=== PATIENT | female | born 1935 | race Caucasian/White ===

== ENCOUNTER → 2017-01-19 | Outpatient (CLI) | payer MEDICARE, BC ==
--- NOTE | 2017-01-20 14:25 | MM ---
Reason for exam: screening (asymptomatic). Last mammogram was performed 1 year and 1 month ago. History: Patient is postmenopausal. Family history of breast cancer in sister at age 67. Benign excisional biopsy of the right breast, 1965. Took estrogen for 15 years beginning at age 51. Took progesterone for 15 years beginning at age 51. Physical Findings: A clinical breast exam by your physician is recommended on an annual basis and results should be correlated with mammographic findings. MG 3D Screening Mammo W/Cad Bilateral CC and MLO view(s) were taken. Prior study comparison: December 17, 2015, bilateral MG 3d screening mammo w/cad. December 05, 2014, bilateral MG screening mammo w CAD. The breast tissue is heterogeneously dense. This may lower the sensitivity of mammography. Finding: There are typically benign diffuse/scattered calcifications in both breasts. No suspicious abnormality. No significant changes in finding since December 17, 2015 and December 05, 2014. ASSESSMENT: Benign, BI-RAD 2 RECOMMENDATION: Routine screening mammogram of both breasts in 1 year.
== END | disposition home or self-care (01) ==
LOC: RADMAMWWP 09:41
PROVIDERS: ATTEND Obstetrics & Gynecology
DX: Z12.31 Encounter for screening mammogram for malignant neoplasm of breast (principal)
CPT/HCPCS: 77063; G0202

== ENCOUNTER → 2018-03-13 | Outpatient (CLI) | payer MEDICARE, BC ==
--- NOTE | 2018-03-15 13:43 | MM ---
Reason for exam: screening (asymptomatic). Last mammogram was performed 1 year and 2 months ago. History: Patient is postmenopausal. Family history of breast cancer in sister at age 67. Benign excisional biopsy of the right breast, 1965. Took estrogen for 15 years beginning at age 51. Took progesterone for 15 years beginning at age 51. Physical Findings: A clinical breast exam by your physician is recommended on an annual basis and results should be correlated with mammographic findings. MG 3D Screening Mammo W/Cad Bilateral CC and MLO view(s) were taken. Prior study comparison: January 19, 2017, bilateral MG 3d screening mammo w/cad. December 17, 2015, bilateral MG 3d screening mammo w/cad. There are scattered fibroglandular densities. Scattered benign calcifications secretory, vascular and oil cyst. No significant changes when compared with prior studies. ASSESSMENT: Negative, BI-RAD 1 RECOMMENDATION: Routine screening mammogram of both breasts in 1 year.
== END | disposition home or self-care (01) ==
LOC: RADMAMWWP 13:34
PROVIDERS: ATTEND Obstetrics & Gynecology
DX: Z12.31 Encounter for screening mammogram for malignant neoplasm of breast (principal)
CPT/HCPCS: 77063; 77067

== ENCOUNTER → 2018-12-04 | Outpatient (CLI) | payer MEDICARE, BC ==
[2018-12-05 00:31] LABS: African American GFR (CKD) 34.7 (60.0-200.0); Anion Gap 8.7 mmol/L (4.00-12.00); BUN/Creat Ratio 17.5 Ratio (12.00-20.00); Carbon Dioxide 30.3 mmol/L (21.6-31.8); Potassium 4.8 mmol/L (3.5-5.5)
== END | disposition home or self-care (01) ==
LOC: LABWHC1 13:50
PROVIDERS: ATTEND Internal Medicine Interventional Cardiology
DX: I25.10 Atherosclerotic heart disease of native coronary artery without angina pectoris (principal)
CPT/HCPCS: 36415; 80048

== ENCOUNTER → 2019-01-30 | Outpatient (CLI) | payer MEDICARE, BC ==
--- NOTE | 2019-01-30 16:20 | US ---
EXAMINATION TYPE: US kidneys/renal and bladder DATE OF EXAM: 01/30/2019 COMPARISON: NONE CLINICAL HISTORY: N18.9 CKD. Chronic kidney disease per order. HTN. EXAM MEASUREMENTS: Right Kidney: 9.3 x 5.6 x 4.7 cm Left Kidney: 9.8 x 4.3 x 5.3 cm Limited due to gas. Right Kidney: Prominent renal pelvis vs. minimal hydronephrosis. Hypoechoic area seen superiorly ashley urin.3 x 1.7 x 0.9 cm. Possible Prominent pyramid or renal calyx. Cyst would be considered. Left Kidney: No hydronephrosis or masses seen Bladder: appears wnl, not fully distended. Bilateral Jets seen: Yes IMPRESSION: 1. Superior pole cyst versus prominent renal calyx at the superior pole
== END | disposition home or self-care (01) ==
LOC: RADUSWWP 15:23
PROVIDERS: ATTEND Internal Medicine Geriatric Medicine
DX: N18.9 Chronic kidney disease, unspecified (principal)
CPT/HCPCS: 76770

== ENCOUNTER → 2019-03-28 | Outpatient (CLI) | payer MEDICARE, BC ==
--- NOTE | 2019-03-28 14:13 | MM ---
Reason for exam: screening (asymptomatic). Last mammogram was performed 1 year ago. History: Patient is postmenopausal. Family history of breast cancer in sister at age 67. Benign excisional biopsy of the right breast, 1965. Took estrogen for 15 years beginning at age 51. Took progesterone for 15 years beginning at age 51. Physical Findings: A clinical breast exam by your physician is recommended on an annual basis and results should be correlated with mammographic findings. MG 3D Screening Mammo W/Cad Bilateral CC and MLO view(s) were taken. Prior study comparison: March 13, 2018, bilateral MG 3d screening mammo w/cad. January 19, 2017, bilateral MG 3d screening mammo w/cad. The breast tissue is heterogeneously dense. This may lower the sensitivity of mammography. Benign appearing bilateral calcifications. No suspicious abnormality. No significant changes when compared with prior studies. ASSESSMENT: Benign, BI-RAD 2 RECOMMENDATION: Routine screening mammogram of both breasts in 1 year.
== END | disposition home or self-care (01) ==
LOC: RADMAMWWP 07:10
PROVIDERS: ATTEND Obstetrics & Gynecology
DX: Z12.31 Encounter for screening mammogram for malignant neoplasm of breast (principal)
CPT/HCPCS: 77063; 77067

== ENCOUNTER → 2019-04-26 | Outpatient (CLI) | payer MEDICARE, BC ==
[2019-04-26 16:20] LABS: HCT 42.7 % (34.0-46.0); HGB 14.1 gm/dL (11.4-16.0); MCH 33.2 pg (25.0-35.0); MCHC 33.1 g/dL (31.0-37.0); MCV 100.6 fL (80.0-100.0); Mean Platelet Volume 6.8; Platelet Count 205 k/uL (150-450); RBC 4.25 m/uL (3.80-5.40); RDW 12.4 % (11.5-15.5); WBC 6.7 k/uL (3.8-10.6)
[2019-04-26 16:23] LABS: Potassium 4.8 mmol/L (3.5-5.1)
== END | disposition home or self-care (01) ==
LOC: LABPAT 15:38
PROVIDERS: ATTEND Internal Medicine Interventional Cardiology
DX: Z01.812 Encounter for preprocedural laboratory examination (principal); I25.118 Atherosclerotic heart disease of native coronary artery with other forms of angina pectoris
CPT/HCPCS: 36415; 80051; 82565; 84520; 85027

== ENCOUNTER 2019-04-30 07:46 | Day surgery (SDC) | payer MEDICARE, BC ==
[~2019-04-30 07:46] MED LIST: ALPRAZolam 0.25 MG TAB PO PRN; ALPRAZolam 0.5 MG TAB PO PRN; ASPIRIN 325 MG TAB PO ONE; ATORVASTATIN 80 MG TAB PO ONE; NITROGLYCERIN SL TABS 0.4 MG TAB SUBLINGUAL PRN
[2019-04-30] MEDS ORDERED: SODIUM CHLORIDE 0.9% 1,000 ML in EMPTY BAG 1 BAG IV ONE (08:00)
[2019-04-30 08:18] LABS: Glucose,Whole Blood 175 mg/dL (75-99)
[2019-04-30 08:29] LABS: INR 1.2 (<1.2); Prothrombin Time 12.1 sec (9.0-12.0)
[2019-04-30] MEDS ORDERED: VERAPAMIL 2.5 MG/ML 2 ML AMP ONE (10:33)
[2019-04-30] MEDS ORDERED: LIDOCAINE 1% INJ 10MG/ML (20 ML MDV) ONE (10:33)
[2019-04-30] MEDS ORDERED: MIDAZOLAM 2 MG/2 ML VIAL IV ONE (10:54)
[2019-04-30] MEDS ORDERED: LIDOCAINE 1% INJ 10MG/ML (20 ML MDV) SQ ONE (10:55)
[2019-04-30] MEDS ORDERED: HEPARIN SODIUM 1,000 UN/ML (10ML VL) ONE (10:57)
[2019-04-30] MEDS: VERAPAMIL SYRINGE (5 MG/10 ML) INTRAARTER ONE ×2 (10:57→11:36)
[2019-04-30] MEDS ORDERED: HEPARIN SODIUM 1,000 UN/ML (10ML VL) IV ONE (10:59)
[2019-04-30] MEDS ORDERED: BIVALIRUDIN BOLUS 250 MG/50 ML IV ONE (11:11)
[2019-04-30] MEDS ORDERED: BIVALIRUDIN 250 MG in SODIUM CHLORIDE 0.9% 50 ML IV ONE (11:12)
[2019-04-30] MEDS ORDERED: IOPAMIDOL-370 100ML BTL INJ ONE ×2 (11:31→11:38)
[2019-04-30] MEDS ORDERED: CLOPIDOGREL 75 MG TAB ONE (11:34)
[2019-04-30] MEDS ORDERED: NITROGLYCERIN 1000MCG/10ML SYRINGE INTRACORON ONE (11:34)
[2019-04-30] MEDS ORDERED: CLOPIDOGREL 75 MG TAB PO ONE (11:37)
[2019-04-30] MEDS ORDERED: RX INFO: IV CONTRAST WAS GIVEN 1 EACH MISC MISCELLANE PRN (11:56)
[2019-04-30] MEDS ORDERED: NITROGLYCERIN SL TABS 0.4 MG TAB SUBLINGUAL PRN (11:56)
[2019-04-30] MEDS ORDERED: ATROPINE SULFATE 0.1 MG/ML 10ML SYRINGE IV PRN (11:56)
[2019-04-30] MEDS ORDERED: ZOLPIDEM 5 MG TAB PO PRN (11:56)
[2019-04-30] MEDS ORDERED: MAG HYDROX/AL HYDROX/SIMETH 30 ML CUP PO PRN (11:56)
--- NOTE | 2019-04-30 12:50 | CC ---
CARDIAC CATHETERIZATION REPORT CARDIAC CATHETERIZATION AND PTCA AND STENTING OF LEFT ANTERIOR DESCENDING CORONARY ARTERY: DATE OF SERVICE: 04/30/2019 PROCEDURES: 1. Left heart catheterization and coronary angiography. 2. PTCA and stenting of the in-stent restenosis within the LAD with 2 drug-eluting stents. PERFORMED BY: Dr. Jana Laird Moderate conscious sedation time was 45 minutes. Patient was administered Versed. Oxygen saturation, hemodynamics and EKG were monitored closely. CLINICAL INFORMATION: Mrs. Priti Angel is an 83-year-old lady with a known history of anterior MS and stenting of LAD with bare metal stent in 1998 followed by restenosis requiring repeat stenting in . Progressively over the years, she has developed some shortness of breath, some worsening of LV function, developed atrial fibrillation. Ejection fraction is in the range of 35% to 40% but of late she has been having significant symptoms of angina. Therefore, she was advised cardiac catheterization after due discussion regarding the rationale, risks, benefits, and options. PROCEDURE NOTE: Under local anesthesia and strict aseptic precautions, a 6-[place] Citizen introducer was placed in the right radial artery. Using JL3.5 and JR4 catheters I performed coronary angiography and the same right catheter was used to check LV pressures. LV gram was not performed. Following the procedure, I noted that there was a significant lesion within the stented segment of the LAD and therefore I proceeded to perform intervention in the same setting. CARDIAC CATHETERIZATION FINDINGS: The left ventricular end-diastolic pressure was 12 mmHg without any gradient across aortic valve. CORONARY ANGIOGRAPHY FINDINGS: RIGHT CORONARY ARTERY: This is a heavily calcified vessel which has a mid lesion of about 50% to 55%. It seems to be worse compared to the previous study from 2006. There is a long area of disease within a calcified segment and the lesion is in the 55% range. Distally the vessel gives off a large PDA, small PLV supplies a fair amount of myocardium. RCA therefore is a dominant vessel with a calcified mid lesion of 55%, which is worse compared to the previous study, but does not seem to be critical. LEFT MAIN CORONARY ARTERY: Short patent disease-free vessel that bifurcates into LAD and circumflex. LEFT ANTERIOR DESCENDING CORONARY ARTERY: This is a good caliber vessel that was stented in 1998. The mid LAD immediately after diagonal branch has a long area of stented segment of nearly 23 mm length. In the proximal portion of the stented area, there is an eccentric 90% stenosis with somewhat sluggish flow. Just beyond the stented segment, there is another 70% area of narrowing. Then the caliber improves, gives off a good-sized diagonal branch and then the LAD runs all the way to the apex, but is diffusely diseased. The LAD therefore within the previous stent has a 90% stenosis eccentric in nature and distal to the stent of about 70% stenosis. There is a diagonal branch that comes off just before the stent. The LAD distally is diffusely disease. LEFT POSTERIOR CIRCUMFLEX CORONARY ARTERY: A nondominant vessel large caliber, obtuse marginal and distal posterolateral branch, both of which have minor irregularities. No significant disease. LEFT VENTRICULOGRAM: Left ventriculogram was not performed. FINAL IMPRESSION: This patient has a right dominant system 55% mid RCA, heavily calcified. Circumflex is nondominant, free of significant disease. LAD that was previously stented has an in- stent restenosis of nearly 80% to 90% within the proximal portion of the stent and beyond the stent there is another 70% narrowing and the caliber of the LAD decreases distally and diagonal is free of significant disease, has minor irregularities. The left ventriculogram was not performed. There was no gradient across aortic valve. Filling pressures are normal. RECOMMENDATIONS: I recommended PCI of LAD that was performed in the same setting. PCI PROCEDURE DETAILS: I used a 3.5 left Yan guide catheter to cannulate the left coronary artery and a Whisper wire, which was straight wire to cross the lesion. Wire was kept distally. I pre-dilated the in-stent restenosis with a 3.0 caliber 20 mm long NC TREK balloon at 12 atmospheres. The entire stented segment was dilated. I then deployed a 2.5 caliber 8 mm stent distal to the previous stent in a new area of disease and this was somewhat under expanded. I then used the same 3.0 NC TREK balloon and I post dilated the stent as well as within the previously stented segment. Excellent angiographic result was achieved of the distal area. I then deployed a 23 mm long 3.25 caliber Xience stent within the previous stent and deployed this at 14 atmospheres. Patient did not have chest pain. She had mild EKG changes. Excellent angiographic result was achieved. There were no complications. The sheath was taken out and TR band applied as per protocol and she was sent to the room in stable condition. Saturation of the fingers of the right hand was 92%. Patient received Angiomax bolus and infusion and also received 600 mg of Plavix. This patient has underlying chronic atrial fibrillation. For now she will be on aspirin, Plavix and Coumadin, but I will switch over to Eliquis and Xarelto in a week. MMODL / IJN: [id number] /
[2019-04-30] MEDS: SODIUM CHLORIDE 0.9% 1,000 ML IV SCH (14:44)
[2019-04-30 15:29] VITALS: BMI 27.8
[2019-04-30 16:47] LABS: Glucose,Whole Blood 250 mg/dL (75-99)
[2019-04-30] MEDS ORDERED: WARFARIN 5 MG TAB PO SCH (18:00)
[2019-04-30] MEDS: METOPROLOL TARTRATE 50 MG TAB PO SCH (20:28)
[2019-04-30] MEDS: LOSARTAN 50 MG TAB PO SCH (20:28)
[2019-04-30 20:41] LABS: Glucose,Whole Blood 131 mg/dL (75-99)
[2019-05-01 06:10] LABS: Glucose,Whole Blood 136 mg/dL (75-99)
[2019-05-01 06:22] LABS: Basophils # (A) 0.1 k/uL (0-0.2); Basophils % (A) 1 %; Eosinophils # (A) 0.3 k/uL (0-0.7); Eosinophils % (A) 6 %; HCT 41.2 % (34.0-46.0); HGB 13.1 gm/dL (11.4-16.0); Lymphocytes % (A) 17 %; MCH 32.3 pg (25.0-35.0); MCHC 31.9 g/dL (31.0-37.0); MCV 101.2 fL (80.0-100.0); Mean Platelet Volume 6.7; Monocytes # (A) 0.3 k/uL (0-1.0); Monocytes % (A) 5 %; Neutrophils # (A) 4.1 k/uL (1.3-7.7); Neutrophils % (A) 70 %; Platelet Count 170 k/uL (150-450); RBC 4.06 m/uL (3.80-5.40); RDW 12.5 % (11.5-15.5); WBC 5.8 k/uL (3.8-10.6)
[2019-05-01] MEDS: SODIUM CHLORIDE 0.9% 1,000 ML IV SCH (06:28)
[2019-05-01] MEDS ORDERED: LEVOTHYROXINE 75 MCG TAB PO SCH (06:30)
[2019-05-01 06:39] LABS: Calcium 8.9 mg/dL (8.4-10.2); Potassium 5.4 mmol/L (3.5-5.1)
[2019-05-01] MEDS ORDERED: glipiZIDE 5 MG TAB PO SCH (07:30)
[2019-05-01] MEDS ORDERED: FUROSEMIDE 40 MG TAB PO SCH (09:00)
[2019-05-01] MEDS ORDERED: CLOPIDOGREL 75 MG TAB PO SCH (09:00)
[2019-05-01] MEDS ORDERED: DHA PO SCH (09:00)
[2019-05-01] MEDS ORDERED: KRILL PO SCH (09:00)
[2019-05-01] MEDS ORDERED: EPA PO SCH (09:00)
[2019-05-01] MEDS ORDERED: AST PO SCH (09:00)
[2019-05-01] MEDS ORDERED: [UNRECOGNIZED DRUG - OTHER] PO SCH (09:00)
[2019-05-01] MEDS ORDERED: ASPIRIN 81 MG PO SCH (09:00)
[2019-05-01] MEDS ORDERED: PHOSPHO PO SCH (09:00)
[2019-05-01] MEDS ORDERED: SPIRONOLACTONE 25 MG TAB PO SCH (09:00)
[2019-05-01] MEDS ORDERED: ATORVASTATIN 40 MG TAB PO SCH (09:00)
[2019-05-01] MEDS ORDERED: CALCIUM CARB-VIT D 500MG-200UN 1 EACH TAB PO SCH (09:00)
[2019-05-01] MEDS: METOPROLOL TARTRATE 50 MG TAB PO SCH (09:11)
[2019-05-01] MEDS: LOSARTAN 50 MG TAB PO SCH (09:12)
[2019-05-01 09:38] VITALS: TEMP 97.9
[2019-05-01 11:43] LABS: Glucose,Whole Blood 222 mg/dL (75-99)
[2019-05-01 12:20] VITALS: BP 144/66; PULSE 69; RESP 14
--- NOTE | 2019-05-01 20:25 | DS ---
DISCHARGE SUMMARY DATE OF ADMISSION: April 30, 2019. DATE OF DISCHARGE: May 01, 2019. DISCHARGE DIAGNOSES: 1. Unstable angina. 2. Ischemic cardiomyopath. 3. Type 2 diabetes. 4. Hypertension. 5. Hypercholesterolemia. CLINICAL INFORMATION: Mrs. Priti Angel was brought in for elective cardiac cath in view of her symptoms of angina and also because of significant ischemic cardiomyopathy and LV dysfunction, ejection fraction in the range of 35%-40%. She has chronic atrial fib and multiple comorbid conditions. The patient underwent a cardiac cath which revealed that she has right dominant system with a 55% mid RCA, heavily calcified lesion. Circumflex was nondominant, free of significant disease. LAD at the site of previous stenting, had in- stent restenosis up to 80% with distal to the stent area of another 70% with calcification. LV gram was not performed. I performed PCI of LAD in the same setting. I deployed 2 stents, 1 is distal to the previous stent, another 1 inside the previous stent. This was a 3.25 caliber 23 mm long Xience stent within the previous stent and an 8 mm 2.5 caliber Xience stent distal to the previous stent but postdilated with a 3.0 caliber NC Trek balloon. Excellent angiographic result without complication was achieved. The patient will be discharged on aspirin, Plavix and Coumadin and I will see her in the office on Monday. At that time, I will switch her over to a combination of Eliquis and Plavix only after 7-14 days. This morning, she is doing well, asymptomatic. The right radial cath site is clean and dry with a good pulse. Her labs are good. Potassium is 5.4. I will discontinue the Aldactone. Her EKG does not reveal any acute changes. Vitals are stable. Blood pressure 130/80, pulse rate is about 70, irregular. JVD 1 cm. No carotid bruit. S1-S2 heard normally. Short systolic murmur noted. Lungs are clear. Abdomen and lower extremity exam unchanged. Right radial cath site is clean and dry with a good pulse. Discharge instructions regarding activity, diet, medications, and appointment were given. Patient will be discharged today. MMODL / IJN: [id number] /
== END 2019-05-01 13:35 | disposition home or self-care (01) ==
LOC: CATHCVL 07:46 → 3SCARD 11:39 → CATHCVL 05-01 13:35
PROVIDERS: ATTEND Internal Medicine Interventional Cardiology
DX: I25.110 Atherosclerotic heart disease of native coronary artery with unstable angina pectoris (principal); T82.855A Stenosis of coronary artery stent, initial encounter; I25.2 Old myocardial infarction; I25.5 Ischemic cardiomyopathy; I48.20 Chronic atrial fibrillation, unspecified; I10 Essential (primary) hypertension; J44.9 Chronic obstructive pulmonary disease, unspecified; E11.9 Type 2 diabetes mellitus without complications; E78.5 Hyperlipidemia, unspecified; E78.00 Pure hypercholesterolemia, unspecified; Z79.82 Long term (current) use of aspirin; Z79.84 Long term (current) use of oral hypoglycemic drugs; Z79.890 Hormone replacement therapy; Z79.01 Long term (current) use of anticoagulants; Z82.49 Family history of ischemic heart disease and other diseases of the circulatory system; Z72.0 Tobacco use
CPT/HCPCS: 93458; 80048; 85025; 85610; C9600; C1769 ×2; C1887; C1725; C1874; C1894; J2250; J2001; J1644; J0583; Q9967

== ENCOUNTER → 2019-05-03 | Outpatient (CLI) | payer MEDICARE, BC ==
[2019-05-03 10:50] LABS: HCT 40.1 % (34.0-46.0); HGB 12.7 gm/dL (11.4-16.0); MCH 31.9 pg (25.0-35.0); MCHC 31.5 g/dL (31.0-37.0); MCV 101.2 fL (80.0-100.0); Mean Platelet Volume 7.3; Platelet Count 194 k/uL (150-450); RBC 3.96 m/uL (3.80-5.40); RDW 12.6 % (11.5-15.5); WBC 6.2 k/uL (3.8-10.6)
[2019-05-03 18:43] LABS: African American GFR (CKD) 34.4 (60.0-200.0); Anion Gap 10.2 mmol/L (4.00-12.00); BUN/Creat Ratio 17.5 Ratio (12.00-20.00); Calcium 9.1 mg/dL (8.7-10.3); Carbon Dioxide 27.8 mmol/L (21.6-31.8); Non-African American GFR(CKD) 29.7 (60.0-200.0); Potassium 4.6 mmol/L (3.5-5.5)
== END | disposition home or self-care (01) ==
LOC: LABWHC1 10:09
PROVIDERS: ATTEND Internal Medicine Interventional Cardiology
DX: I25.10 Atherosclerotic heart disease of native coronary artery without angina pectoris (principal); N18.9 Chronic kidney disease, unspecified
CPT/HCPCS: 36415; 80048; 85027

== ENCOUNTER 2019-05-28 07:51 | Inpatient (IN) | payer MEDICARE, BC ==
[2019-05-23 15:04] VITALS: BMI 28.1
[~2019-05-28 07:51] MED LIST changes: +SODIUM CHLORIDE 0.9% 1,000 ML in EMPTY BAG 1 BAG IV ONE
[2019-05-28 08:38] LABS: INR 1.1 (<1.2); Prothrombin Time 11.3 sec (9.0-12.0)
[2019-05-28] MEDS ORDERED: LIDOCAINE 1% INJ 10MG/ML (20 ML MDV) ONE ×2 (09:11→09:54)
[2019-05-28] MEDS ORDERED: MIDAZOLAM 2 MG/2 ML VIAL IV ONE (09:27)
[2019-05-28] MEDS ORDERED: LIDOCAINE 1% INJ 10MG/ML (20 ML MDV) SQ ONE ×2 (09:34→09:48)
[2019-05-28] MEDS ORDERED: fentaNYL (PF) 50 MCG/ML 2 ML AMP ONE (10:07)
[2019-05-28] MEDS ORDERED: HEPARIN SODIUM 1,000 UN/ML (10ML VL) ONE (10:09)
[2019-05-28] MEDS ORDERED: HEPARIN SODIUM 1,000 UN/ML (10ML VL) IV ONE ×2 (10:10)
[2019-05-28] MEDS ORDERED: fentaNYL (PF) 50 MCG/ML 2 ML AMP IVP ONE ×2 (10:15→11:14)
[2019-05-28] MEDS ORDERED: IOPAMIDOL-370 100ML BTL INJ ONE ×3 (11:08→11:37)
[2019-05-28] MEDS ORDERED: NITROGLYCERIN 1000MCG/10ML SYRINGE INTRACORON ONE ×2 (11:08→11:09)
[2019-05-28] MEDS ORDERED: SODIUM CHLORIDE 0.9% 1,000 ML IV ONE (11:10)
[2019-05-28] MEDS ORDERED: HYDROmorphone 1 MG/ML 1 ML SYRINGE ONE (11:20)
[2019-05-28] MEDS ORDERED: HYDROmorphone 1 MG/ML 1 ML SYRINGE IVP ONE ×2 (11:20)
[2019-05-28] MEDS ORDERED: CLOPIDOGREL 75 MG TAB PO ONE (11:31)
[2019-05-28] MEDS ORDERED: CLOPIDOGREL 75 MG TAB ONE (11:31)
[2019-05-28] MEDS ORDERED: FUROSEMIDE 10 MG/ML 4 ML VIAL ONE (11:37)
[2019-05-28] MEDS ORDERED: FUROSEMIDE 10 MG/ML 2 ML VIAL IVP ONE (11:37)
[2019-05-28] MEDS ORDERED: ISOSORBIDE MONONITRATE ER 30 MG TAB.ER.24H PO SCH (12:00)
[2019-05-28 12:26] LABS: Glucose,Whole Blood 160 mg/dL (75-99)
[2019-05-28] MEDS: ATORVASTATIN 20 MG TAB PO SCH (12:38)
--- NOTE | 2019-05-28 12:39 | PTCA ---
PERCUTANEOUSTRANS CORORONARY ANGIOGRAPHY PTCA AND STENTING OF HEAVILY CALCIFIED RCA: DATE OF SERVICE: 05/28/2019. PROCEDURE: 1. Transvenous temporary pacemaker from right femoral venous approach. 2. Impella heart pump placement from right femoral arterial approach. 3. PTCA and stenting with orbital atherectomy of proximal RCA from left femoral arterial approach next. PERFORMED BY: Dr. Jana Laird. Moderate conscious sedation time was 115 minutes. Patient was administered Versed, oxygen, fentanyl, and Dilaudid. Oxygen saturation, hemodynamics and EKG were monitored closely. CLINICAL INFORMATION: Mrs. Priti Cabrera is an 83-year-old lady with a history of hypertension, diabetes, hyperlipidemia, mild chronic kidney disease, and CAD with a previous anterior AK more than 15 years ago when I performed stenting of LAD. Subsequently, she had a repeat stenting at [place] and as recently as 2 weeks or 3 weeks ago she came in with unstable angina and I performed stenting of her LAD as well as an additional area in the LAD, in addition to the in-stent restenosis with a good result. She had a heavily calcified proximal RCA disease and was advised intervention with the Impella support and orbital atherectomy and brought in for the procedure electively after due discussion with the patient and family regarding the rationale, risks, benefits, and options. PROCEDURE NOTE: Under local anesthesia and strict aseptic precautions, a 6-[place] introducer was placed in the right femoral vein and a 6-[place] introducer placed in the right femoral artery. A transvenous temporary pacemaker was advanced and positioned in the right ventricular apex with good capture, threshold was 0.5 mV. Pacer was set at a backup rate of 40 with a mA of 5. I then placed an 8-[place] introducer under strict aseptic precautions and local anesthesia in the left femoral artery. From the right femoral approach, I advanced and positioned an 8-[place] dilator and then a 10-[place] dilator. Prior to this, I used 2 Perclose devices to pre close in 10 am and 2 pm position and secured these sutures nicely. Over the wire, the 10-[place] introducer was taken out and a 13- [place] Impella sheath was positioned under fluoroscopic guidance. Excellent hemostasis was achieved. I advanced a pigtail catheter over the 0.035 wire and kept the pigtail in the left ventricle. The 0.035 wire was taken out and a 0.018 Impella wire was advanced and positioned. Over the Impella wire, I advanced the Impella device very carefully under fluoroscopic guidance and a good position was achieved. Impella was then turned on, cardiac output was excellent at 2.5 L. This was an Impella 2.5 device. Excellent hemodynamics were noted. I then advanced the a standard right Yan catheter from the left femoral artery approach and took a picture of the RCA. A run- through wire was advanced and positioned distally. Patient received 5500 units of heparin intravenously and ACT was about 360 to begin with and at the end of the procedure, it was 266. A run-through wire was advanced and positioned distal to the lesion. I used a tele port catheter and exchanged the run-through wire to a Nitinol atherectomy wire. Over this Nitinol atherectomy wire, I advanced the orbital atherectomy catheter and made 3 passes. There was a significant improvement in the angiographic appearance. I then used a 2.5 caliber 20 mm long NC Trek balloon and pre- dilated the lesion. There was one focal area I did not open up. For this, I addressed a 12 mm 3.0 NC Trek balloon at 12 atmospheres. Finally, the lesion opened up. The lesion was very well prepared with the orbital atherectomy and noncompliant balloon inflation. I then deployed an 18 mm long 3.0 caliber Xience stent at 12 atmospheres. Excellent angiographic result was achieved. Patient had chest pain and inferior ST elevation. Excellent angiographic result without complication was achieved. The patient's ACT was 266. I then started weaning the Impella off. Eventually under fluoroscopic guidance, the Impella was taken out of the LV into the aorta and then the Impella was disconnected and was taken out under fluoroscopic guidance. Subsequently, the pacemaker was also taken out under fluoroscopic guidance. I took out the 13-[place] sheath and pre closed it. The 10 o'clock pre close was excellent, it was able to be deployed and the suture was pushed all the way down with a decent hemostasis. On the left side; however, the sheath broke and we still had a wire position and therefore I used an 8-[place] Angio-Seal device and with a combo of 8-[place] Angio-Seal device and 1 Perclose device, excellent hemostasis was achieved. I then tried to advance the Perclose to the left femoral arterial approach but because of heavy calcification, the suture would not take it. I then switched over to an Angio-Seal and Angio-Seal was deployed in the left femoral arterial access site with decent hemostasis. The femoral venous sheath was taken and hemostasis secured manually. There was good hemostasis. Patient was hemodynamically stable. Very transiently, she had an episode when she was a little short of breath and had some difficulty for words coming out. This lasted about maybe 1 or 2 minutes and then she became a little emotional and after that she stabilized. She was neurologically intact. I did not feel that this was any neurological event. She was sent to the ICU in a stable condition with good hemostasis in both groins, stable without symptoms, decent EKG. She has chronic underlying atrial fibrillation and this rhythm of atrial fibrillation was not new and the rate was well controlled. Excellent angiographic result was achieved without any complication. Results and details were discussed with the patient, her daughter and son. I expect she will be discharged in the next 48 hours. MIN / SANDIN: [id number] /
[2019-05-28] MEDS ORDERED: ONDANSETRON 4 MG/2 ML VIAL IVP PRN (12:52)
[2019-05-28] MEDS: SODIUM CHLORIDE 0.9% 1,000 ML IV SCH (13:05)
[2019-05-28] MEDS ORDERED: NALOXONE 0.4 MG/ML 1 ML VIAL IV PRN (13:19)
[2019-05-28] MEDS: METOPROLOL TARTRATE 50 MG TAB PO SCH (22:26)
[2019-05-29 05:18] LABS: Basophils % (A) 1 %; Eosinophils # (A) 0.2 k/uL (0-0.7); Eosinophils % (A) 4 %; HCT 33.7 % (34.0-46.0); Lymphocytes # (A) 0.9 k/uL (1.0-4.8); Lymphocytes % (A) 17 %; MCH 32.2 pg (25.0-35.0); MCHC 32.6 g/dL (31.0-37.0); MCV 98.9 fL (80.0-100.0); Mean Platelet Volume 7.4; Monocytes # (A) 0.3 k/uL (0-1.0); Monocytes % (A) 6 %; Neutrophils # (A) 3.6 k/uL (1.3-7.7); Neutrophils % (A) 70 %; Platelet Count 168 k/uL (150-450); RBC 3.41 m/uL (3.80-5.40); RDW 12.6 % (11.5-15.5); WBC 5.2 k/uL (3.8-10.6)
[2019-05-29 05:28] LABS: Calcium 8.4 mg/dL (8.4-10.2); Potassium 4.4 mmol/L (3.5-5.1)
[2019-05-29] MEDS: LEVOTHYROXINE 75 MCG TAB PO SCH (05:56)
[2019-05-29] MEDS: SODIUM CHLORIDE 0.9% 1,000 ML IV SCH ×2 (05:58→09:01)
[2019-05-29] MEDS: glipiZIDE 5 MG TAB PO SCH (08:56)
[2019-05-29] MEDS: ATORVASTATIN 20 MG TAB PO SCH (08:59)
[2019-05-29] MEDS: CLOPIDOGREL 75 MG TAB PO SCH (08:59)
[2019-05-29] MEDS: METOPROLOL TARTRATE 50 MG TAB PO SCH ×2 (09:00→21:26)
[2019-05-29] MEDS: FUROSEMIDE 40 MG TAB PO SCH (09:00)
--- NOTE | 2019-05-29 09:02 | PN ---
PROGRESS NOTE DATE OF SERVICE: 05/29/2019 Mrs. Priti Angel is an 83-year-old lady with a history of type 2 diabetes, hypertension, hyperlipidemia, CAD with a prior anterior HI and PCI of LAD performed 3-4 weeks ago. Yesterday, I brought her in for elective PCI of a very dominant RCA that was heavily calcified. The LAD area is an LAD territory had has had a previous myocardial infarction and circumflex was small. The patient is PTCA of RCA was performed with Impella support, temporary transvenous pacemaker, and also orbital atherectomy followed by stenting with excellent result. Postprocedure course was uneventful. Both groins are clean and dry pulses are good at the femorals as well as distally. Vital signs are stable, blood pressure is 110/70, pulse rate is about 70-80, regular. There is no JVD/ S1-S2 heard normally irregular rhythm noted short systolic murmur noted lungs are clear abdomen is soft, nontender. Lower extremities reveal normal pulses. Both groins are clean and dry with a small area of ecchymosis. Central nervous system is unremarkable. PLAN: To increase activity today and hopefully discharge the patient tomorrow morning. Discharge the patient tomorrow morning. We will continue dual antiplatelet therapy and all her other medications and increase activity and discussed my thoughts in detail with the patient. MMODL / IJN: [id number] /
[2019-05-29] MEDS ORDERED: ISOSORBIDE MONONITRATE ER 30 MG TAB.ER.24H PO SCH (12:00)
[2019-05-29 12:15] LABS: Glucose,Whole Blood 177 mg/dL (75-99)
[2019-05-30] MEDS: LEVOTHYROXINE 75 MCG TAB PO SCH (06:27)
[2019-05-30] MEDS: SODIUM CHLORIDE 0.9% 1,000 ML IV SCH (06:29)
[2019-05-30 08:28] VITALS: BP 112/54; PULSE 58; RESP 19; TEMP 98.1
[2019-05-30] MEDS: METOPROLOL TARTRATE 50 MG TAB PO SCH (08:39)
[2019-05-30] MEDS: glipiZIDE 5 MG TAB PO SCH (08:39)
[2019-05-30] MEDS: ATORVASTATIN 20 MG TAB PO SCH (08:40)
[2019-05-30] MEDS: FUROSEMIDE 40 MG TAB PO SCH (08:40)
[2019-05-30] MEDS: CLOPIDOGREL 75 MG TAB PO SCH (08:40)
--- NOTE | 2019-05-30 09:25 | DS ---
DISCHARGE SUMMARY DATE OF ADMISSION: 05/28/2019 DATE OF DISCHARGE: 05/30/2019. DIAGNOSES: 1. Unstable angina. 2. Ischemic cardiomyopathy. 3. Type 2 diabetes. 4. Hypertension. 5. Hypercholesterolemia. Mrs. Priti Angel is an 83-year-old lady with a known history of previous anterior [place] and PCI of the LAD on multiple occasions, last one about 4 weeks ago. She has a very large dominant RCA, which was heavily calcified with a proximal lesion of about 70%- 80%. She was advised intervention, brought in for the procedure electively. This intervention in this patient was performed with the Impella support. Her ejection fraction is less than 35%. With the Impella support and orbital atherectomy and stenting was performed of the RCA with excellent angiographic result. She had a temporary pacer as a backup. Postprocedure course was uneventful. Both her groins are clean and dry and she is ambulating without symptoms. Vitals are stable. Blood pressure 118/70, pulse rate is 70-80, irregular, which patient has chronic atrial fibrillation with controlled rate. There is no JVD. S1-S2 heard normally, irregular rhythm noted, short systolic murmur noted. Lungs are clear. Abdomen is soft, nontender. Lower extremities revealed palpable pulses. Both of the patient's groins are clean and dry with good pulse. There is no edema. Central nervous system is grossly within normal limits. Patient will be discharged today and will be seen in the office on 06/05. Discharge instructions regarding activity, diet, and medications were given. MMODL / IJN: [id number] /
[2019-05-30] MEDS ORDERED: WARFARIN 2.5 MG TAB PO ONE (10:00)
[2019-05-30 10:03] LABS: Prothrombin Time 10.5 sec (9.0-12.0)
== END 2019-05-30 12:48 | disposition home or self-care (01) | DRG 215 ==
LOC: 2ORMAIN 07:51 → 2SICU 11:26
PROVIDERS: ADMIT Internal Medicine Interventional Cardiology; ATTEND Internal Medicine Interventional Cardiology
PROC: X2C0361 Extirpation of Matter from Coronary Artery, One Artery using Orbital Atherectomy Technology, Percutaneous Approach, New Technology Group 1 (ICD-10-PCS; principal; 2019-05-28 09:00)
PROC: 02HA3RJ Insertion of Short-term External Heart Assist System into Heart, Intraoperative, Percutaneous Approach (ICD-10-PCS; principal; 2019-05-28 09:00)
PROC: 5A0221D Assistance with Cardiac Output using Impeller Pump, Continuous (ICD-10-PCS; principal; 2019-05-28 09:00)
PROC: 027034Z Dilation of Coronary Artery, One Artery with Drug-eluting Intraluminal Device, Percutaneous Approach (ICD-10-PCS; principal; 2019-05-28 09:00)
DX: I25.110 Atherosclerotic heart disease of native coronary artery with unstable angina pectoris (principal); I48.20 Chronic atrial fibrillation, unspecified; E11.22 Type 2 diabetes mellitus with diabetic chronic kidney disease; E78.00 Pure hypercholesterolemia, unspecified; E78.5 Hyperlipidemia, unspecified; I12.9 Hypertensive chronic kidney disease with stage 1 through stage 4 chronic kidney disease, or unspecified chronic kidney disease; I25.2 Old myocardial infarction; I25.5 Ischemic cardiomyopathy; N18.2 Chronic kidney disease, stage 2 (mild); R01.1 Cardiac murmur, unspecified; Z79.01 Long term (current) use of anticoagulants; Z79.02 Long term (current) use of antithrombotics/antiplatelets; Z79.82 Long term (current) use of aspirin; Z79.890 Hormone replacement therapy; Z79.899 Other long term (current) drug therapy; Z95.5 Presence of coronary angioplasty implant and graft; Z82.49 Family history of ischemic heart disease and other diseases of the circulatory system
CPT/HCPCS: 80048; 85025; 85347; 85610

== ENCOUNTER 2019-08-15 16:41 | Emergency (ER) | payer MEDICARE, BC ==
[2019-08-15] MEDS ORDERED: ONDANSETRON 4 MG/2 ML VIAL IVP STA (16:43)
[2019-08-15] MEDS ORDERED: SODIUM CHLORIDE 0.9% 1,000 ML IV STA (16:43)
[2019-08-15 16:46] LABS: Glucose,Whole Blood 251 mg/dL (75-99)
--- NOTE | 2019-08-15 16:46 | ED ---
General Adult HPI - General Stated complaint: Poss Stroke Time Seen by Provider: 08/15/19 16:43 - History of Present Illness Initial comments: Dictation was produced using [employer] dictation software. please excuse any grammatical, word or spelling errors. This patient was cared for during a federal and state declared state of emergency secondary to Covid 19 Chief Complaint: 83-year-old female past medical history of H fibrillation, co ronary artery disease presents with strokelike symptoms starting at 4 PM. History of Present Illness: 83-year-old female she is brought in by EMS for strokelike symptoms that began at 4 PM. History is obtained from EMS. Patient is aphasic and unable to provide HPI. According EMS she does take a blood thinner. They're not sure what it is. They did bring her medications with her. According to EMS patient was severely confused and aphasic. Daughter witnessed the acute symptoms. She was vomiting while en route to the emergency department The ROS documented in this emergency department record has been reviewed and confirmed by me. Those systems with pertinent positive or negative responses have been documented in the HPI. All other systems are other negative and/or noncontributory. PHYSICAL EXAM: General Impression: No acute distress HEENT: Normocephalic atraumatic, extra-ocular movements intact, pupils equal and reactive to light bilaterally, mucous membranes moist. Cardiovascular: Heart regular rate and rhythm Chest: no retractions, no tachypnea Abdomen: abdomen soft, non-tender, non-distended, no organomegaly Musculoskeletal: Pulses present and equal in all extremities, no peripheral edema Motor: no focal deficits noted Neurological: Does not follow commands, nonverbal, moves all extremities to painful stimuli Skin: Intact with no visualized rashes ED course: 83 y old female with acute strokelike symptoms starting approximately 40 minutes prior to arrival. Patient is on Coumadin. Medications were at bedside and reviewed. Blood glucose is 200. Code stroke paged. Patient was sent to CT. CT showed large acute intraparenchymal hemorrhage invol ving the left temporal parietal and frontal lobes with 5 mm shift there is also a left acute subdural hematoma. Discussed patient case Dr. Winn recommends transfer to higher level of care. Labs were reviewed. CBC and a marble. INR is 2.3. Metabolic panel is within acceptable limits. Patient will be given [facility]. Patient given vitamin K. Discussed patient case with Dr. Clarissa Navas who is willing to accept patients care for ER to ER transfer. Patient's blood pressure has been in the 140s systolic. She is given 10 mg IV push of labetalol. Patient is nauseated however she is not showing any signs of acute distress. At this point we will hold off on endotracheal intubation. Patient to be transferred. Discussed disposition plan and results with daughter who was at bedside. EKG interpretation: Ventricular rate 73, H or fibrillation, QRS 146, QTC 502. No MT prolongation, no QTC prolongation, no ST or T-wave changes noted. EKG compared to 02/27/2020 showing no changes. Overall, this EKG is unremarkable - Related Data Home Medications Medication Instructions Recorded Confirmed Aspirin 81 mg PO DAILY 04/29/19 05/28/19 Calcium Carbonate/Vitamin D3 1 each PO DAILY 04/29/19 05/28/19 [Calcium 500-Vit D3 200 Tablet] Furosemide [Lasix] 40 mg PO DAILY 04/29/19 05/28/19 Isosorbide Mononitrate ER [Imdur] 30 mg PO BID 04/29/19 05/28/19 Krill/Om-3/Dha/Epa/Phospho/Ast 1 each PO DAILY 04/29/19 05/28/19 [[place]-3 Krill Oil 300 mg Sfgl] Levothyroxine Sodium [Synthroid] 75 mcg PO DAILY 04/29/19 05/28/19 Metoprolol Tartrate [Lopressor] 50 mg PO BID 04/29/19 05/28/19 Ubidecarenone [Co Q-10] 100 mg PO DAILY 04/29/19 05/28/19 glipiZIDE [Glucotrol] 2.5 mg PO AC-SUPPER 04/29/19 05/28/19 glipiZIDE [Glucotrol] 5 mg PO AC-BRKFST 04/29/19 05/28/19 metFORMIN HCL [Glucophage] 500 mg PO BID 04/29/19 05/28/19 Losartan [Cozaar] 100 mg PO QAM 05/23/19 05/28/19 Previous Rx's Medication Instructions Recorded Atorvastatin [Lipitor] 40 mg PO DAILY #30 tablet 05/01/19 Clopidogrel Bisulfate [Plavix] 75 mg PO DAILY #30 tab 05/01/19 Nitroglycerin Sl Tabs [Nitrostat] 0.4 mg SUBLINGUAL Q5M PRN #100 tab 05/01/19 Warfarin Sodium [Coumadin] 2.5 mg PO 1800 #30 tablet 05/01/19 Allergies Allergy/AdvReac Type Severity Reaction Status Date / Time No Known Allergies Allergy Verified 05/23/19 14:47 Review of Systems ROS Statement: Those systems with pertinent positive or pertinent negative responses have been documented in the HPI. ROS Other: All systems not noted in ROS Statement are negative. Past Medical History Past Medical History: Atrial Fibrillation, Coronary Artery Disease (CAD), Diabetes Mellitus, Myocardial Infarction (MT), Osteoarthritis (OA), Skin Disorder Additional Past Medical History / Comment(s): hx MIGRAINE, rosacea, decreased kidney function Last Myocardial Infarction Date:: 1998 History of Any Multi-Drug Resistant Organisms: None Reported Past Surgical History: Heart Catheterization, Heart Catheterization With Stent, Tubal Ligation Additional Past Surgical History / Comment(s): FATTY TUMOR REMOVED FROM LEFT SHOULDER AREA , [place] cataracts, 3-4 cardiac stents Past Anesthesia/Blood Transfusion Reactions: No Reported Reaction Date of Last Stent Placement:: 04/2019 Smoking Status: Former smoker - Past Family History Sister(s) Family Medical History: Cancer Brother(s) Family Medical History: Cancer Course Vital Signs 08/15/19 16:57 Temperature 97.5 F L Pulse Rate 76 Respiratory 18 Rate Blood Pressure 142/78 O2 Sat by Pulse 99 Oximetry Medical Decision Making - Lab Data Result diagrams: 08/15/19 16:51 08/15/19 16:51 Lab Results 08/15/19 08/15/19 08/15/19 Range/Units 16:43 16:51 16:51 WBC 5.3 (3.8-10.6) k/uL RBC 3.87 (3.80-5.40) m/uL Hgb 12.6 (11.4-16.0) gm/dL Hct 38.1 (34.0-46.0) % MCV 98.4 (80.0-100.0) fL MCH 32.7 (25.0-35.0) pg MCHC 33.2 (31.0-37.0) g/dL RDW 13.1 (11.5-15.5) % Plt Count 218 (150-450) k/uL Neutrophils % 61 % Lymphocytes % 27 % Monocytes % 6 % Eosinophils % 4 % Basophils % 1 % Neutrophils # 3.3 (1.3-7.7) k/uL Lymphocytes # 1.4 (1.0-4.8) k/uL Monocytes # 0.3 (0-1.0) k/uL Eosinophils # 0.2 (0-0.7) k/uL Basophils # 0.0 (0-0.2) k/uL PT (9.0-12.0) sec INR (<1.2) APTT (22.0-30.0) sec Sodium 136 L (137-145) mmol/L Potassium 3.7 (3.5-5.1) mmol/L Chloride 101 (98-107) mmol/L Carbon Dioxide 25 (22-30) mmol/L Anion Gap 10 mmol/L BUN 25 H (7-17) mg/dL Creatinine 1.46 H (0.52-1.04) mg/dL Est GFR (CKD-EPI)AfAm 38 (>60 ml/min/1.73 sqM) Est GFR (CKD-EPI)NonAf 33 (>60 ml/min/1.73 sqM) Glucose 242 H (74-99) mg/dL POC Glucose (mg/dL) 251 H (75-99) mg/dL POC Glu Maintenance [employer] Janae Chou Calcium 9.4 (8.4-10.2) mg/dL Total Bilirubin 0.8 (0.2-1.3) mg/dL AST 36 (14-36) U/L ALT 25 (4-34) U/L Alkaline Phosphatase 132 H (38-126) U/L Total Protein 7.0 (6.3-8.2) g/dL Albumin 3.9 (3.5-5.0) g/dL 08/15/19 Range/Units 16:51 WBC (3.8-10.6) k/uL RBC (3.80-5.40) m/uL Hgb (11.4-16.0) gm/dL Hct (34.0-46.0) % MCV (80.0-100.0) fL MCH (25.0-35.0) pg MCHC (31.0-37.0) g/dL RDW (11.5-15.5) % Plt Count (150-450) k/uL Neutrophils % % Lymphocytes % % Monocytes % % Eosinophils % % Basophils % % Neutrophils # (1.3-7.7) k/uL Lymphocytes # (1.0-4.8) k/uL Monocytes # (0-1.0) k/uL Eosinophils # (0-0.7) k/uL Basophils # (0-0.2) k/uL PT 22.0 H (9.0-12.0) sec INR 2.3 H (<1.2) APTT 25.8 (22.0-30.0) sec Sodium (137-145) mmol/L Potassium (3.5-5.1) mmol/L Chloride (98-107) mmol/L Carbon Dioxide (22-30) mmol/L Anion Gap mmol/L BUN (7-17) mg/dL Creatinine (0.52-1.04) mg/dL Est GFR (CKD-EPI)AfAm (>60 ml/min/1.73 sqM) Est GFR (CKD-EPI)NonAf (>60 ml/min/1.73 sqM) Glucose (74-99) mg/dL POC Glucose (mg/dL) (75-99) mg/dL POC Glu Maintenance [employer] ID Calcium (8.4-10.2) mg/dL Total Bilirubin (0.2-1.3) mg/dL AST (14-36) U/L ALT (4-34) U/L Alkaline Phosphatase (38-126) U/L Total Protein (6.3-8.2) g/dL Albumin (3.5-5.0) g/dL Critical Care Time Critical Care Time: Yes Total Critical Care Time: 33 Disposition Clinical Impression: Intracranial hemorrhage Disposition: OTHER INSTITUTION NOT DEFINED Condition: Critical Referrals: Rik Griffith MD [Primary Care Provider] - 1-2 days Time of Disposition: 17:14 - Out of Hospital Transfer - Req. Specs Out of Hospital Transfer - Requested Specifics: Other Emergency Center ([facility])
[2019-08-15 16:55] LABS: Basophils % (A) 1 %; Eosinophils # (A) 0.2 k/uL (0-0.7); Eosinophils % (A) 4 %; HCT 38.1 % (34.0-46.0); HGB 12.6 gm/dL (11.4-16.0); Lymphocytes # (A) 1.4 k/uL (1.0-4.8); Lymphocytes % (A) 27 %; MCH 32.7 pg (25.0-35.0); MCHC 33.2 g/dL (31.0-37.0); MCV 98.4 fL (80.0-100.0); Mean Platelet Volume 6.9; Monocytes # (A) 0.3 k/uL (0-1.0); Monocytes % (A) 6 %; Neutrophils # (A) 3.3 k/uL (1.3-7.7); Neutrophils % (A) 61 %; Platelet Count 218 k/uL (150-450); RBC 3.87 m/uL (3.80-5.40); RDW 13.1 % (11.5-15.5); WBC 5.3 k/uL (3.8-10.6)
[2019-08-15] MEDS ORDERED: PHYTONADIONE 5 MG in SODIUM CHLORIDE 0.9% 50 ML IVPB STA (16:55)
[2019-08-15 17:01] VITALS: RESP 18; TEMP 97.5
[2019-08-15 17:04] LABS: INR 2.3 (<1.2)
[2019-08-15 17:05] LABS: Partial Thromboplastin Time 25.8 sec (22.0-30.0)
[2019-08-15 17:07] LABS: Albumin 3.9 g/dL (3.5-5.0); Calcium 9.4 mg/dL (8.4-10.2); Potassium 3.7 mmol/L (3.5-5.1); Total Bilirubin 0.8 mg/dL (0.2-1.3)
[2019-08-15] MEDS ORDERED: Kcentra PER PHARMACY 1 EACH MISC MISCELLANE PRN (17:09)
--- NOTE | 2019-08-15 17:09 | CT ---
EXAMINATION TYPE: CT brain wo con DATE OF EXAM: 08/15/2019 COMPARISON: None HISTORY: severe headache with light sensitivity CT DLP: 1102.8 mGycm Automated exposure control for dose reduction was used. TECHNIQUE: CT scan of the head is performed without contrast. FINDINGS: There is a large area of intracranial hemorrhage and the left temporal lobe, frontal lobe, and parietal lobe measuring up to 6.7 cm. There is subdural hematoma component measuring 6 mm in thic kness. There is 5 mm subfalcine herniation/left or right midline shift. There is effacement of the le ft sided sulci and left lateral ventricle. Left-sided cerebral edema is evident with vasogenic edema surrounding the intraparenchymal hemorrhage. The calvarium appears intact. The paranasal sinuses and mastoid air cells are well aerated. Scleral c alcification is seen on the left. Otherwise orbits are unremarkable. IMPRESSION: Large acute intraparenchymal hemorrhage involving the left temporal, parietal, and front al lobes with left to right midline shift of 5 mm (subfalcine herniation). There is also an acute lef t subdural hematoma measuring 6 mm in greatest thickness. Findings communicated with the ordering ER provider by Dr. Ross on 08/15/2019 at 1703.
[2019-08-15] MEDS ORDERED: LABETALOL 5 MG/ML VIAL MDV IVP STA (17:11)
[2019-08-15] MEDS ORDERED: EMPTY BAG 1 BAG with HUMAN PROTHROMBIN COMPLX 2,236 UNIT IV ONE (17:30)
[2019-08-15 17:47] LABS: Creatine Kinase 101 U/L (30-135)
[2019-08-15 17:48] VITALS: BP 141/101; PULSE 80
--- NOTE | 2019-08-15 17:58 | XR ---
EXAMINATION TYPE: XR chest 1V portable DATE OF EXAM: 08/15/2019 COMPARISON: 08/10/2012 HISTORY: Mental status TECHNIQUE: Single frontal view of the chest is obtained. FINDINGS: There is new moderate interstitial pulmonary edema and mild pulmonary vascular congestion. Faint basilar opacities are seen in the infrahilar airspace and retrocardiac airspace. Cardiomediast inal silhouette is partially obscured but enlarged. There is diffuse osseous demineralization. IMPRESSION: Fluid overload. Primary consideration is for decompensated congestive heart failure. Aty pical pneumonia is a less likely consideration.
[2019-08-15 18:00] LABS: Creatine Kinase MB 1.4 ng/mL (0.0-2.4); Troponin I <0.012 ng/mL (0.000-0.034)
== END 2019-08-15 17:48 | disposition other institution (70) ==
LOC: EC 16:41
DX: I62.9 Nontraumatic intracranial hemorrhage, unspecified (principal); I62.00 Nontraumatic subdural hemorrhage, unspecified; I48.91 Unspecified atrial fibrillation; I25.10 Atherosclerotic heart disease of native coronary artery without angina pectoris; E11.9 Type 2 diabetes mellitus without complications; I25.2 Old myocardial infarction; Z95.818 Presence of other cardiac implants and grafts; Z95.5 Presence of coronary angioplasty implant and graft; Z87.891 Personal history of nicotine dependence; Z79.82 Long term (current) use of aspirin; Z79.890 Hormone replacement therapy; Z79.84 Long term (current) use of oral hypoglycemic drugs; Z79.899 Other long term (current) drug therapy
CPT/HCPCS: 36415; 93005; 80053; 82550; 82553; 84484; 85025; 85610; 85730; 71045; 70450; 99291; 96365; 96368; 96374; 96375; J3430; J2405; C9132